=== PATIENT | male | born 1995 | race Caucasian/White ===

== ENCOUNTER 2022-03-16 03:49 | Emergency (ER) | payer MEDICAID ==
[~2022-03-16] VITALS: Ht 177.8 cm; Wt 79.4 kg
[2022-03-16 03:55] VITALS: BP_SYST 132
--- NOTE | 2022-03-16 03:59 | NUR ---
Patient triaged and placed in waiting room. VS checked and patient appears in no acute distress at this time. Accompanied by family, awaiting available bed, and MD notified of need for MSE.
--- NOTE | 2022-03-16 04:03 | NUR ---
Patient ambulatory to bed 5 for evaluation and treatment
--- NOTE | 2022-03-16 04:09 | NUR ---
PT IS AA&OX4. AFEBRILE. NAD. C/O 10/28 EPIGASTRIC PAIN W/ N/V. NO DIARRHEA. AMBULATORY W/ STEADY GAIT. SAFE & HAZARD FREE ENVIRONMENT PROVIDED.
--- NOTE | 2022-03-16 04:31 | NUR ---
# 20 gauge angiocath placed to R AC. Use of asceptic technique. Opsite placed over site. Blood return noted. Blood for lab drawn from site & SENT TO LAB. Flushed with 10 cc of normal saline. No evidence of infiltration noted. Patient tolerated well.
--- NOTE | 2022-03-16 04:34 | NUR ---
ER Dr. AGUIRRE at bedside examining patient.
[2022-03-16 04:36] LABS: BASOPHILS % (AUTO) 0.4 % (0.0-2.0); EOSINOPHILS # (AUTO) 0.1 K/uL (0.0-0.4); EOSINOPHILS % (AUTO) 1.1 % (0.0-4.0); HEMATOCRIT 48.1 % (36-54); HEMOGLOBIN 16.6 g/dL (14.0-18.0); LYMPHOCYTES # (AUTO) 1.5 K/uL (1.0-5.5); LYMPHOCYTES % (AUTO) 13.6 % (20.5-51.5); MEAN CORPUSCULAR HEMOGLOBIN 28 pg (27-31); MEAN CORPUSCULAR HGB CONC 34 % (32-36); MEAN CORPUSCULAR VOLUME 82 fL (79.0-98.0); MONOCYTES # (AUTO) 0.4 K/uL (0.0-1.0); MONOCYTES % (AUTO) 3.5 % (1.7-9.3); NEUTROPHILS # (AUTO) 9.1 K/uL (1.8-7.7); NEUTROPHILS % (AUTO) 81.4 % (40.0-70.0); PLATELET COUNT (AUTO) 279 K/uL (130-430); RED BLOOD CELL COUNT(AUTO) 5.84 MIL/uL (4.2-6.2); RED CELL DISTRIBUTION WIDTH 13.8 % (9.0-15.0); WHITE BLOOD COUNT (AUTO) 11.2 K/uL (4.8-10.8)
--- NOTE | 2022-03-16 04:51 | NUR ---
Urine specimen collected and sent to lab.
[2022-03-16 05:00] LABS: CALCIUM 10.1 mg/dL (8.4-11.0); CREATININE 1.16 mg/dL (0.55-1.30)
[2022-03-16] MEDS ORDERED: ONDANSETRON HCL 4 MG/2 ML VIAL IVP ONE (05:00)
[2022-03-16] MEDS ORDERED: KETOROLAC TROMETHAMINE 15 MG VIAL IVP ONE (05:00)
[2022-03-16 05:02] LABS: BILIRUBIN,URINE NEGATIVE (NEGATIVE); BLOOD, URINE NEGATIVE (NEGATIVE); COLOR,URINE YELLOW (YELLOW); GLUCOSE,URINE NEGATIVE (NEGATIVE); KETONES,URINE 2+ (NEGATIVE); LEUKOCYTE ESTERASE ,URINE NEGATIVE (NEGATIVE); NITRITE, URINE NEGATIVE (NEGATIVE); PROTEIN URINE NEGATIVE (NEGATIVE); UROBILINOGEN,URINE 0.2 (0.2-1.0)
[2022-03-16 05:05] LABS: TOTAL BILIRUBIN 0.8 mg/dL (0.0-1.0)
[2022-03-16 05:05] LABS: CLARITY/URINE SLIGHTLY CLOUDY (CLEAR)
[2022-03-16] MEDS ORDERED: MAG-AL HYDROX/SIMETH 30 ML UDC PO ONE (05:30)
[2022-03-16] MEDS ORDERED: FAMO20TA8 PO (05:53)
[2022-03-16] MEDS ORDERED: ONDA-8 TL (05:53)
[2022-03-16] MEDS ORDERED: ACET-2634 PO (05:53)
[2022-03-16 06:10] VITALS: BP_SYST 128
--- NOTE | 2022-03-16 06:11 | NUR ---
Patient given written and verbal discharge instructions and verbalizes understanding. ER MD discussed with patient the results and treatment provided. Patient in stable condition. ID arm band removed. IV catheter removed intact and dressing applied, no active bleeding. Rx of PEPCID & ZOFRAN given. Patient educated on pain management and to follow up with PMD. Pain Scale 0/10. Opportunity for questions provided and answered. Medication side effect fact sheet provided.
== END 2022-03-16 06:11 | disposition home or self-care (01) ==
LOC: SED 03:49
DX: R10.13 Epigastric pain (principal); R11.2 Nausea with vomiting, unspecified; F12.90 Cannabis use, unspecified, uncomplicated; Z79.899 Other long term (current) drug therapy
CPT/HCPCS: 99284; 96374; 96375; 80053; 83690; 85025; 36415; 81003; J1885; J2405